=== PATIENT | female | born 2000 | race American Indian/Alaskan Native ===

== ENCOUNTER 2020-05-24 12:47 | Emergency (ER) | payer MEDICAID ==
[2020-05-24 13:00] VITALS: BP 151/70
--- NOTE | 2020-05-24 13:21 | Event Note ---
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 Further treatment and workup at subsequent clinical providers discretion. Patient/guardian urged not to elope from the ED as their condition may be serious if not clinically assessed and managed. Initial orders include: labs, ua
[2020-05-24 14:10] LABS: Bilirubin,Urine NEG (Negative); Blood,Urine NEG (Negative); Color,Urine Yellow (Yellow); Mucus,Urine FEW /HPF; Protein,Urine <15 mg/dL mg/dL (Negative); Urobilinogen,Urine < 2.0 mg/dL (<2.0); WBC,Urine < 1.0 /HPF (0.0-6.0)
[2020-05-24 14:42] LABS: Basophils # (Auto) 0.1 K/mm3 (0.0-0.1); Basophils % (Auto) 0.4 % (0.0-1.8); Eosinophils # (Auto) 0.1 K/mm3 (0.0-0.4); Eosinophils % (Auto) 0.9 % (0.0-4.3); Hematocrit 33.2 % (30.3-42.9); Hemoglobin 11.7 gm/dl (10.1-14.3); Lymphocytes # (Auto) 1.7 K/mm3 (1.2-5.4); Lymphocytes % (Auto) 14.3 % (13.4-35.0); Mean Corpuscular HGB Conc 35 % (30-34); Mean Corpuscular Volume 88 fl (79-97); Monocytes # (Auto) 0.9 K/mm3 (0.0-0.8); Monocytes % (Auto) 7.8 % (0.0-7.3); Red Blood Count 3.79 M/mm3 (3.65-5.03); Red Cell Distribution Width 13.3 % (13.2-15.2)
[2020-05-24 14:47] LABS: Platelet Count 243 K/mm3 (140-440)
[2020-05-24 15:08] LABS: Alanine Aminotransferase 13 units/L (7-56); Albumin 3.6 g/dL (3.9-5); Blood Urea Nitrogen 7 mg/dL (7-17); Calcium 9.6 mg/dL (8.4-10.2); Hemolysis Index 28
[2020-05-24 15:16] LABS: BUN/Creatinine Ratio 18
--- NOTE | 2020-05-24 23:37 | Emergency Department Report ---
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 Patient states she was in [employer] office earlier today and had mildly elevated high blood pressure and she was advised that further evaluation and treatment options were needed. States the plan is for her to return to the office tomorrow and be reevaluated in the next still so low blood pressure medication may be initiated. During office visit she states she was advised to seek evaluation at the emergency department to ensure that there were no other issues presents. She reports no fever, no chest pain, no palpitations, no headache, no blurred vision. Reports she is compliant with her vitamins and has no other known medical issues. Improves with: none Worsens with: none Associated Symptoms: malaise. denies: diaphoresis, loss of appetite, rash, seizure, syncope, weakness - Related Data Allergies Allergy/AdvReac Type Severity Reaction Status Date / Time No Known Allergies Allergy Unverified 05/24/20 12:59 ED Review of Systems Comment: All other systems reviewed and negative ED Past Medical Hx - Past Medical History Previous Medical History?: No - Surgical History Past Surgical History?: No - Social History Smoking Status: Never Smoker Substance Use Type: None ED Physical Exam - General Limitations: No Limitations General appearance: alert, in no apparent distress, other (In a good mood ambulatory no acute distress speaking in full sentences) - Head Head exam: Present: atraumatic, normocephalic - Eye Eye exam: Present: normal appearance, PERRL, EOMI - ENT ENT exam: Present: mucous membranes moist - Neck Neck exam: Present: normal inspection - Respiratory Respiratory exam: Present: normal lung sounds bilaterally. Absent: respiratory distress - Cardiovascular Cardiovascular Exam: Present: regular rate, normal rhythm. Absent: systolic murmur, diastolic murmur, rubs, gallop - GI/Abdominal GI/Abdominal exam: Present: soft, normal bowel sounds, other ( abdomen is protuberant) - Extremities Exam Extremities exam: Present: normal inspection - Back Exam Back exam: Present: normal inspection. Absent: CVA tenderness (R), CVA tenderness (L) - Neurological Exam Neurological exam: Present: alert, oriented X3, CN II-XII intact - Psychiatric Psychiatric exam: Present: normal affect, normal mood - Skin Skin exam: Present: warm, dry, intact, normal color. Absent: rash ED Medical Decision Making - Lab Data Result diagrams: 05/24/20 14:01 05/24/20 14:01 - Medical Decision Making Presents to the emergency department complaining of high blood pressure. Patient is otherwise asymptomatic without confusion, chest pain, hematuria, or SOB. BP today is in the 150s over the 70s Patient is not currently on medication Doubt CV, AMI, heart failure, renal infarction or failure or other end organ damage. Disposition:Discussed with patient their elevated blood pressure and need for close outpatient management of their hypertension. Will provide a prescription for the patients previous antihypertensive medication and arrange for the patient to follow up in a primary care clinic Disposition: Discussed with patient their elevated blood pressure and need for close outpatient management of their hypertension. Advised the patient on appropriate hydration and salt limitations to help manage his hypertension. Also advised to keep your appointment tomorrow to further evaluate the need for a prescription ED Disposition Clinical Impression: HTN (hypertension) with goal to be determined Disposition: DC-01 TO HOME OR SELFCARE Is pt being admited?: No Does the pt Need Aspirin: No Condition: Stable Instructions: Hypertension During , [id number], Hypertension (ED) Additional Instructions: Preprocedure return to your [employer] to be further evaluated for your hypertensive issues. This present timeplease refrain from salt and increase your hydration to help combat your hypertension. Referrals: PRIMARY CARE, [Primary Care Provider] - 3-5 Days <GWEN COLLINS III - Last Filed: 05/25/20 00:00> ED Review of Systems ROS: Stated complaint: SOB,HIGH BLOOD PRESSURE Other details as noted in HPI ED Course Vital Signs 05/24/20 05/24/20 05/24/20 12:58 22:37 23:40 Temperature 98.3 F Pulse Rate 107 H 88 Respiratory 22 17 Rate Blood Pressure 151/70 O2 Sat by Pulse 99 97 98 Oximetry - Reevaluation(s) Reevaluation #1: I reviewed the findings and management of this patient in real-time and I have personally seen and examined this patient and participated in the decision making for this patient with the midlevel. Patient is a 20-year-old female that is 24 weeks . Patient presents for management of her high blood pressure. Patient denies chest pain. Patient denies shortness of breath. Patient's blood pressure is elevated. I discussed low-salt diet with patient. I discussed increasing her free water intake. I examined the patient. Patient's lung sounds are clear. Patient's CV exam shows normal S1-S2. Patient has a gravid abdomen. Patient does not have any dyspnea with exertion or ambulation. Patient ambulatory in the ER without difficulty. Patient's oxygen saturation stable with ambulation. Patient's vital signs are normal except for elevated blood pressure. I discussed all results and clinical findings with patient. I discussed plan of care with patient. Patient agrees with plan of care. Patient is stable for discharge. Patient will be discharged home. Patient given discharge instructions. Patient voiced understanding of discharge instructions. 05/24/20 23:01 ED Medical Decision Making - Lab Data Result diagrams: 05/24/20 14:01 05/24/20 14:01 Critical care attestation.: If time is entered above; I have spent that time in minutes in the direct care of this critically ill patient, excluding procedure time. ED Disposition Is pt being admited?: No Does the pt Need Aspirin: No Time of Disposition: 23:59
== END 2020-05-24 23:39 | disposition home or self-care (01) ==
LOC: ED 12:47
DX: O16.2 Unspecified maternal hypertension, second trimester (principal); Z3A.24 24 weeks gestation of pregnancy
CPT/HCPCS: 36415; 80053; 81001; 85025

== ENCOUNTER 2020-06-30 12:11 | Outpatient (CLI) | payer MEDICAID ==
[2020-06-30 18:01] VITALS: BP 133/66
== END 2020-06-30 18:29 | disposition home or self-care (01) ==
LOC: LAB 12:11 → APU 17:48 → LAB 18:29
PROVIDERS: ATTEND Obstetrics & Gynecology
DX: O26.893 Other specified pregnancy related conditions, third trimester (principal); Z67.11 Type A blood, Rh negative; Z3A.29 29 weeks gestation of pregnancy
CPT/HCPCS: 59025; 86850; 86900; 86901; 96372; J2790

== ENCOUNTER 2020-07-23 23:26 | Outpatient (CLI) | payer MEDICAID ==
[2020-07-24] MEDS ORDERED: LACTATED RINGERS 1,000 ML IV ONE (00:10)
[2020-07-24 00:46] LABS: Bacteria,Urine 1+ /HPF (Negative); Bilirubin,Urine NEG (Negative); Blood,Urine NEG (Negative); Color,Urine Yellow (Yellow); Mucus,Urine FEW /HPF; Protein,Urine <15 mg/dL mg/dL (Negative); Urobilinogen,Urine < 2.0 mg/dL (<2.0)
[2020-07-24 00:58] VITALS: BP 123/77
== END 2020-07-24 01:15 | disposition home or self-care (01) ==
LOC: TRG 23:26 → APU 23:34 → TRG 07-24 01:15
PROVIDERS: ATTEND Obstetrics & Gynecology
DX: Z34.93 Encounter for supervision of normal pregnancy, unspecified, third trimester (principal); Z3A.32 32 weeks gestation of pregnancy
CPT/HCPCS: 59025; 81001

== ENCOUNTER 2020-09-06 15:08 | Inpatient (IN) | payer MEDICAID ==
--- NOTE | 2020-09-06 15:46 | History and Physical Report ---
History of Present Illness Date of examination: 09/06/20 Date of admission: 09/06/20 15:08 Chief complaint: IOL, PIH, Class III Obesity History of present illness: 20 yo G1 at 39w0d (HANNA 09/13/20) c/b Anemia (on iron), +CT (neg CLARK), Rh neg, GHTN/PIH (24H TP 508 -> 540), Class III Obesity, gained >100 lb this ), GBS neg presenting for IOL for PIH and Class III Obesity. Patient denies labor complaints or PIH symptoms. +FM. PNC reviewed. 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) Family/Genetic History: none Social history: no significant social history - Obstetrical History Expected Date of Delivery: 09/13/20 Actual Gestation: 39 Week(s) 0 Day(s) : 1 Medications and Allergies Allergies Allergy/AdvReac Type Severity Reaction Status Date / Time No Known Allergies Allergy Unverified 05/24/20 12:59 Review of Systems All systems: negative (expect HPI) - Physical Exam Abdomen: Positive: normal appearance, normal bowel sounds Uterus: Positive: enlarged - Obstetrical FHR: category 1 Uterine Contraction Monitor Mode: External Cervical Dilatation: 0 Results Result Diagrams: 09/06/20 15:45 09/06/20 15:45 All other labs normal. Assessment and Plan - Patient Problems (1) Obesity affecting Current Visit: Yes Status: Acute Plan to address problem: Proceed with IOL for Class III Obesity at term --Cerdivil for cervical ripening, ok for pit after 3+ cm --IV pain medication, epidural is available --Anticipate (2) PIH ( induced hypertension) Current Visit: Yes Status: Acute Plan to address problem: --Known atleast GHTN. Will obtain baseline PIH labs --Monitor for s/sx preeclampsia
[2020-09-06] MEDS ORDERED: MINERAL OIL 30 ML ORAL LIQD PO PRN (16:00)
[2020-09-06] MEDS ORDERED: ONDANSETRON 4 MG/2 ML INJ IV PRN (16:00)
[2020-09-06] MEDS ORDERED: OXYTOCIN DRIP 30 UNITS/500 ML BAG IV SCH ×2 (16:00)
[2020-09-06] MEDS ORDERED: TERBUTALINE 1 MG/1 ML INJ SUB-Q PRN (16:00)
[2020-09-06] MEDS ORDERED: LOPERAMIDE 2 MG CAP PO PRN (16:00)
[2020-09-06] MEDS ORDERED: METHYLERGONOVINE MALEATE 0.2 MG/ML VIAL IM PRN (16:00)
[2020-09-06] MEDS ORDERED: ePHEDrine SULFATE 50 MG/1 ML INJ IV PRN (16:00)
[2020-09-06] MEDS ORDERED: NALOXONE 0.4 MG/1 ML INJ IV PRN (16:00)
[2020-09-06] MEDS ORDERED: PROMETHAZINE 25 MG TAB PO PRN (16:00)
[2020-09-06] MEDS ORDERED: OXYTOCIN 10 UNIT/1 ML INJ IM PRN (16:00)
[2020-09-06] MEDS ORDERED: CARBOPROST TROMETHAMINE 250 MCG/1 ML INJ IM PRN (16:00)
[2020-09-06] MEDS ORDERED: BUTORPHANOL 2 MG/1 ML INJ IV PRN ×2 (16:00)
[2020-09-06] MEDS ORDERED: ACETAMINOPHEN 325 MG TAB PO PRN (16:00)
[2020-09-06] MEDS ORDERED: miSOPROStol 200 MCG TAB PR PRN (16:00)
[2020-09-06] MEDS ORDERED: LIDOCAINE (2%) 20 MG/1 ML VIAL 20 ML MDV INFILTRATI ONE (16:30)
[2020-09-06] MEDS ORDERED: DINOPROSTONE 10 MG VAG SUPP VG ONE (16:30)
[2020-09-06 18:18] LABS: Hemoglobin 11.1 gm/dl (10.1-14.3); Mean Corpuscular HGB Conc 34 % (30-34); Mean Corpuscular Volume 85 fl (79-97); Platelet Count 255 K/mm3 (140-440); Red Blood Count 3.88 M/mm3 (3.65-5.03); Red Cell Distribution Width 15.2 % (13.2-15.2)
[2020-09-06 19:16] LABS: Alanine Aminotransferase 12 units/L (7-56); Uric Acid 4.3 mg/dL (3.5-7.6)
[2020-09-07] MEDS ORDERED: DINOPROSTONE 10 MG VAG SUPP VG NR (08:51)
--- NOTE | 2020-09-07 10:01 | Progress Note ---
Assessment and Plan A: IUP@ 39.1 wks with PIH Class III obesity RH neg GBS neg P: Continuos monitoring Start Cervidil # 2 Pain med/Epidural prn Anticipate Offer Rhogam pp Subjective - Subjective Date of service: 09/07/20 Principal diagnosis: IUP@39.1wks Patient reports: movement normal Objective - Vital Signs Vital Signs: Vital Signs - 12hr 09/07/20 09/07/20 09/07/20 02:01 07:10 08:43 Pulse Rate 85 86 93 H Blood Pressure 123/67 123/69 131/65 O2 Sat by Pulse Oximetry 09/07/20 09/07/20 09/07/20 08:48 08:53 08:58 Pulse Rate 87 93 H 102 H Blood Pressure O2 Sat by Pulse 100 100 100 Oximetry 09/07/20 09/07/20 09/07/20 09:03 09:08 09:13 Pulse Rate 94 H 96 H 98 H Blood Pressure O2 Sat by Pulse 99 99 99 Oximetry 09/07/20 09/07/20 09/07/20 09:18 09:23 09:28 Pulse Rate 100 H 100 H 95 H Blood Pressure O2 Sat by Pulse 99 99 100 Oximetry 09/07/20 09/07/20 09/07/20 09:33 09:38 09:43 Pulse Rate 88 95 H 93 H Blood Pressure O2 Sat by Pulse 99 98 98 Oximetry 09/07/20 09/07/20 09/07/20 09:48 09:49 09:53 Pulse Rate 86 96 H 98 H Blood Pressure O2 Sat by Pulse 96 88 97 Oximetry 09/07/20 09:57 Pulse Rate 92 H Blood Pressure O2 Sat by Pulse 93 Oximetry - Exam Breasts: normal Abdomen: Present: normal appearance, soft, normal bowel sounds Vulva: both: normal Uterus: Present: normal FHR: category 1 Uterine Contraction Monitor Mode: External Cervical Dilatation: 1 Cervical Effacement Percentage: 40 station: -3 Uterine Contraction Pattern: Irregular Uterine Tone Measurement Phase: Resting Uterine Contraction Intensity: Mild Extremities: normal - Labs Labs: Abnormal Labs 09/06/20 15:45 Lactate Dehydrogenase 273 H Laboratory Results - last 24 hr 09/06/20 09/06/20 09/06/20 15:45 15:45 15:45 WBC 8.3 RBC 3.88 Hgb 11.1 Hct 33.0 MCV 85 MCH 29 MCHC 34 RDW 15.2 Plt Count 255 Creatinine Estimated GFR Uric Acid AST ALT Lactate Dehydrogenase Syphilis IgG Antibody Nonreactive Blood Type A NEGATIVE Antibody Screen Negative 09/06/20 15:45 WBC RBC Hgb Hct MCV MCH MCHC RDW Plt Count Creatinine 0.6 Estimated GFR > 60 Uric Acid 4.3 AST 27 ALT 12 Lactate Dehydrogenase 273 H Syphilis IgG Antibody Blood Type Antibody Screen
[2020-09-07] MEDS: LACTATED RINGERS 1,000 ML IV SCH (13:39)
[2020-09-07] MEDS ORDERED: CALCIUM CARBONATE 500 MG TAB CHEW PO PRN (19:46)
[2020-09-08] MEDS: LACTATED RINGERS 1,000 ML IV SCH ×4 (01:15→22:50)
--- NOTE | 2020-09-08 07:34 | Progress Note ---
Assessment and Plan A: IUP@ 39.2wks with class III obesity and PIH RH neg Neg GBS P: Continue monitoring with Pitocin Expect progress Subjective - Subjective Date of service: 09/08/20 Principal diagnosis: IUP@39.2wks Patient reports: movement normal Objective - Vital Signs Vital Signs: Vital Signs - 12hr 09/07/20 09/07/20 09/07/20 19:34 19:40 19:48 Temperature Pulse Rate Blood Pressure O2 Sat by Pulse 6 L 93 92 Oximetry 09/07/20 09/08/20 09/08/20 23:40 03:55 03:56 Temperature 98.3 F 98.3 F Pulse Rate 93 H 98 H Blood Pressure 127/59 107/60 O2 Sat by Pulse Oximetry - Exam Breasts: deferred Abdomen: Present: normal appearance, soft, normal bowel sounds Vulva: both: normal Uterus: Present: normal FHR: category 1 Uterine Contraction Monitor Mode: External Cervical Dilatation: 1.5 Cervical Effacement Percentage: 50 station: -3 Uterine Contraction Pattern: Irregular Uterine Tone Measurement Phase: Resting Uterine Contraction Intensity: Mild Extremities: normal - Labs Labs: Abnormal Labs 09/06/20 15:45 Lactate Dehydrogenase 273 H
--- NOTE | 2020-09-08 12:09 | Progress Note ---
Subjective - Subjective Date of service: 09/08/20 Principal diagnosis: IUP@39.2wks Interval history: cervix 2cm/80%/-3 AROM clear IUPC placed(FSE unable to be placed) continue oxytocin per protocol Brooke Rodríguez MD Patient reports: movement normal Objective - Vital Signs Vital Signs: Vital Signs - 12hr 09/08/20 09/08/20 09/08/20 03:55 03:56 08:22 Temperature 98.3 F Pulse Rate 98 H 85 Respiratory Rate Blood Pressure 107/60 118/70 O2 Sat by Pulse Oximetry O2 Sat by Pulse Oximetry [ Anterior Bilateral Throughout] 09/08/20 09/08/20 09/08/20 08:30 08:46 08:51 Temperature 98.0 F Pulse Rate 81 Respiratory 16 Rate Blood Pressure O2 Sat by Pulse 98 99 99 Oximetry O2 Sat by Pulse 99 Oximetry [ Anterior Bilateral Throughout] 09/08/20 09/08/20 09/08/20 08:56 09:01 09:06 Temperature Pulse Rate 84 90 81 Respiratory Rate Blood Pressure O2 Sat by Pulse 99 98 98 Oximetry O2 Sat by Pulse Oximetry [ Anterior Bilateral Throughout] 09/08/20 09/08/20 09/08/20 09:11 09:16 09:21 Temperature Pulse Rate 88 83 94 H Respiratory Rate Blood Pressure O2 Sat by Pulse 98 97 99 Oximetry O2 Sat by Pulse Oximetry [ Anterior Bilateral Throughout] 09/08/20 09/08/20 09/08/20 09:24 09:26 09:31 Temperature Pulse Rate 82 84 89 Respiratory Rate Blood Pressure 111/59 O2 Sat by Pulse 98 98 Oximetry O2 Sat by Pulse Oximetry [ Anterior Bilateral Throughout] 09/08/20 09/08/20 09/08/20 09:36 09:41 09:46 Temperature Pulse Rate 89 90 86 Respiratory Rate Blood Pressure O2 Sat by Pulse 98 98 99 Oximetry O2 Sat by Pulse Oximetry [ Anterior Bilateral Throughout] 09/08/20 09/08/20 09/08/20 09:54 09:55 09:59 Temperature Pulse Rate 82 89 92 H Respiratory Rate Blood Pressure 112/56 O2 Sat by Pulse 98 99 Oximetry O2 Sat by Pulse Oximetry [ Anterior Bilateral Throughout] 09/08/20 09/08/20 09/08/20 10:04 10:09 10:14 Temperature Pulse Rate 98 H 82 80 Respiratory Rate Blood Pressure O2 Sat by Pulse 99 100 98 Oximetry O2 Sat by Pulse Oximetry [ Anterior Bilateral Throughout] 09/08/20 09/08/20 09/08/20 10:19 10:22 10:24 Temperature Pulse Rate 77 82 84 Respiratory Rate Blood Pressure 138/80 O2 Sat by Pulse 99 98 Oximetry O2 Sat by Pulse Oximetry [ Anterior Bilateral Throughout] 09/08/20 09/08/20 09/08/20 10:29 10:45 10:50 Temperature Pulse Rate 79 79 92 H Respiratory Rate Blood Pressure O2 Sat by Pulse 99 100 100 Oximetry O2 Sat by Pulse Oximetry [ Anterior Bilateral Throughout] 09/08/20 09/08/20 09/08/20 10:55 11:00 11:05 Temperature Pulse Rate 81 83 84 Respiratory Rate Blood Pressure O2 Sat by Pulse 98 99 97 Oximetry O2 Sat by Pulse Oximetry [ Anterior Bilateral Throughout] 09/08/20 09/08/20 09/08/20 11:10 11:15 11:20 Temperature Pulse Rate 85 84 90 Respiratory Rate Blood Pressure O2 Sat by Pulse 99 99 100 Oximetry O2 Sat by Pulse Oximetry [ Anterior Bilateral Throughout] 09/08/20 09/08/20 09/08/20 11:24 11:25 11:30 Temperature Pulse Rate 78 77 85 Respiratory Rate Blood Pressure 99/55 O2 Sat by Pulse 97 98 Oximetry O2 Sat by Pulse Oximetry [ Anterior Bilateral Throughout] 09/08/20 09/08/20 09/08/20 11:36 11:41 11:46 Temperature Pulse Rate 114 H 86 94 H Respiratory Rate Blood Pressure O2 Sat by Pulse 100 98 99 Oximetry O2 Sat by Pulse Oximetry [ Anterior Bilateral Throughout] 09/08/20 09/08/20 09/08/20 11:51 11:56 12:01 Temperature Pulse Rate 87 91 H 81 Respiratory Rate Blood Pressure O2 Sat by Pulse 79 L 99 99 Oximetry O2 Sat by Pulse Oximetry [ Anterior Bilateral Throughout] 09/08/20 12:06 Temperature Pulse Rate 86 Respiratory Rate Blood Pressure O2 Sat by Pulse 99 Oximetry O2 Sat by Pulse Oximetry [ Anterior Bilateral Throughout] - Labs Labs: Abnormal Labs 09/06/20 15:45 Lactate Dehydrogenase 273 H Laboratory Results - last 24 hr 09/07/20 09:24 Coronavirus (PCR) Negative
[2020-09-08 19:06] LABS: Hepatitis C Virus Antibody Non-Reactive (NonReactive)
[2020-09-08] MEDS ORDERED: NALOXONE 2 MG/2 ML INJ IV PRN (20:14)
[2020-09-08] MEDS ORDERED: ePHEDrine SULFATE 50 MG/1 ML INJ IV PRN (20:14)
[2020-09-08] MEDS: fentaNYL-BUPIV 2 MCG/ML-0.125% 200 MCG/100 ML BAG EPIDURAL SCH (20:22)
--- NOTE | 2020-09-08 20:23 | Anesthesia Consultation ---
Anesthesia Consult and Med Hx Date of service: 09/08/20 - Airway Anesthetic Teeth Evaluation: Poor ROM Head & Neck: Adequate Mental/Hyoid Distance: Adequate Mallampati Class: Class III Intubation Access Assessment: Possibly Difficult - Pulmonary Exam CTA: Yes - Cardiac Exam Cardiac Exam: RRR - Pre-Operative Health Status ASA Pre-Surgery Classification: ASA3 Proposed Anesthetic Plan: Epidural - Pulmonary Hx Smoking: No Hx Asthma: No Hx Respiratory Symptoms: No SOB: No COPD: No Home Oxygen Therapy: No Hx Pneumonia: No Hx Sleep Apnea: No - Cardiovascular System Hx Hypertension: Yes (GHTN/PIH) Hx Coronary Artery Disease: No Hx Heart Attack/AMI: No Hx Angina: No Hx Percutaneous Transluminal Coronary Angioplasty (PTCA): No Hx Cardia Arrhythmia: No Hx Pacemaker: No Hx Internal Defibrillator: No Hx Valvular Heart Disease: No Hx Heart Murmur: No Hx Peripheral Vascular Disease: No - Central Nervous System Hx Neuromuscular Disorder: No Hx Seizures: No CVA: No Hx Back Pain: Yes Hx Psychiatric Problems: No - Gastrointestinal Hx Ulcer: No Hx Gastroesophageal Reflux Disease: Yes - Endocrine Hx Renal Disease: No Hx End Stage Renal Disease: No Hx Cirrhosis: No Hx Liver Disease: No Hx Insulin Dependent Diabetes: No Hx Non-Insulin Dependent Diabetes: No Hx Thyroid Disease: No Hx Hypothyroidism: No Hx Hyperthyroidism: No - Hematic Hx Anemia: No Hx Sickle Cell Disease: No - Other Systems Hx Alcohol Use: No Hx Substance Use: No Hx Cancer: No Hx Obesity: Yes (BMI 52)
--- NOTE | 2020-09-08 20:25 | Progress Note ---
Labor Epidural - Labor Epidural Start Time: 19:43 Stop Time: 19:51 Performed by:: 2002 Procedure: Patient is requesting a laboring epidural for laboring pain. Patient IDed, H&P reviewed, all questions and concerns were answered, and consent was signed. Timeout was performed at bedside. Patient in sitting position. Sterile prep and drape was performed. [3] ml of 1% lidocaine skin wheal at L[3]- L [4]. 18- gauge Saleem epidural needle was advanced to loss of resistance with saline technique at 9cm. Negative CSF negative blood. Epidural catheter advanced to [14] centimeters. [NEGATIVE] Aspiration [NEGATIVE] test dose. Sterile dressing applied. Patient tolerated procedure.
[2020-09-08] MEDS ORDERED: CALCIUM CARBONATE 500 MG TAB CHEW PO ONE (22:45)
--- NOTE | 2020-09-08 23:51 | Progress Note ---
Subjective - Subjective Date of service: 09/08/20 Principal diagnosis: IUP@39.2wks Interval history: FHT Category 2 Robinson: irregular plan for oxytocin rest ~2 hours then restart per protocol pt comfortable with epidural Brooke Rodríguez MD Patient reports: movement normal Objective - Vital Signs Vital Signs: Vital Signs - 12hr 09/08/20 09/08/20 09/08/20 11:51 11:56 12:01 Temperature Pulse Rate 87 91 H 81 Respiratory Rate Blood Pressure O2 Sat by Pulse 79 L 99 99 Oximetry O2 Sat by Pulse Oximetry [ Anterior Bilateral Throughout] 09/08/20 09/08/20 09/08/20 12:06 12:11 12:16 Temperature Pulse Rate 86 90 75 Respiratory Rate Blood Pressure O2 Sat by Pulse 99 99 99 Oximetry O2 Sat by Pulse Oximetry [ Anterior Bilateral Throughout] 09/08/20 09/08/20 09/08/20 12:21 12:23 12:26 Temperature Pulse Rate 78 81 84 Respiratory Rate Blood Pressure 114/55 O2 Sat by Pulse 98 97 Oximetry O2 Sat by Pulse Oximetry [ Anterior Bilateral Throughout] 09/08/20 09/08/20 09/08/20 12:31 12:36 12:41 Temperature Pulse Rate 85 85 81 Respiratory Rate Blood Pressure O2 Sat by Pulse 97 97 96 Oximetry O2 Sat by Pulse Oximetry [ Anterior Bilateral Throughout] 09/08/20 09/08/20 09/08/20 12:46 12:51 12:56 Temperature Pulse Rate 78 85 88 Respiratory Rate Blood Pressure O2 Sat by Pulse 97 96 95 Oximetry O2 Sat by Pulse Oximetry [ Anterior Bilateral Throughout] 09/08/20 09/08/20 09/08/20 13:01 13:06 13:11 Temperature Pulse Rate 85 95 H 81 Respiratory Rate Blood Pressure O2 Sat by Pulse 96 98 96 Oximetry O2 Sat by Pulse Oximetry [ Anterior Bilateral Throughout] 09/08/20 09/08/20 09/08/20 13:13 13:16 13:21 Temperature 97.8 F Pulse Rate 93 H 92 H Respiratory Rate Blood Pressure O2 Sat by Pulse 97 96 Oximetry O2 Sat by Pulse Oximetry [ Anterior Bilateral Throughout] 09/08/20 09/08/20 09/08/20 13:24 13:26 13:31 Temperature Pulse Rate 85 82 85 Respiratory Rate Blood Pressure 110/65 O2 Sat by Pulse 96 98 Oximetry O2 Sat by Pulse Oximetry [ Anterior Bilateral Throughout] 09/08/20 09/08/20 09/08/20 13:36 13:41 13:46 Temperature Pulse Rate 95 H 83 85 Respiratory Rate Blood Pressure O2 Sat by Pulse 98 96 98 Oximetry O2 Sat by Pulse Oximetry [ Anterior Bilateral Throughout] 09/08/20 09/08/20 09/08/20 13:51 13:56 14:01 Temperature Pulse Rate 93 H 93 H 84 Respiratory Rate Blood Pressure O2 Sat by Pulse 98 96 100 Oximetry O2 Sat by Pulse Oximetry [ Anterior Bilateral Throughout] 09/08/20 09/08/20 09/08/20 14:06 14:11 14:16 Temperature Pulse Rate 82 86 90 Respiratory Rate Blood Pressure O2 Sat by Pulse 98 99 99 Oximetry O2 Sat by Pulse Oximetry [ Anterior Bilateral Throughout] 09/08/20 09/08/20 09/08/20 14:21 14:23 14:26 Temperature Pulse Rate 105 H 111 H 98 H Respiratory Rate Blood Pressure 187/99 O2 Sat by Pulse 100 99 Oximetry O2 Sat by Pulse Oximetry [ Anterior Bilateral Throughout] 09/08/20 09/08/20 09/08/20 14:31 14:36 14:41 Temperature Pulse Rate 87 87 93 H Respiratory Rate Blood Pressure O2 Sat by Pulse 99 98 98 Oximetry O2 Sat by Pulse Oximetry [ Anterior Bilateral Throughout] 09/08/20 09/08/20 09/08/20 14:45 14:46 14:51 Temperature Pulse Rate 83 100 H 87 Respiratory Rate Blood Pressure O2 Sat by Pulse 93 100 99 Oximetry O2 Sat by Pulse Oximetry [ Anterior Bilateral Throughout] 09/08/20 09/08/20 09/08/20 14:56 14:58 15:00 Temperature 97.9 F Pulse Rate 105 H 90 Respiratory Rate Blood Pressure 128/72 O2 Sat by Pulse 100 Oximetry O2 Sat by Pulse Oximetry [ Anterior Bilateral Throughout] 09/08/20 09/08/20 09/08/20 15:01 15:06 15:11 Temperature Pulse Rate 91 H 95 H 95 H Respiratory Rate Blood Pressure O2 Sat by Pulse 100 99 99 Oximetry O2 Sat by Pulse Oximetry [ Anterior Bilateral Throughout] 09/08/20 09/08/20 09/08/20 15:16 15:21 15:23 Temperature Pulse Rate 89 96 H 91 H Respiratory Rate Blood Pressure 133/82 O2 Sat by Pulse 98 99 Oximetry O2 Sat by Pulse Oximetry [ Anterior Bilateral Throughout] 09/08/20 09/08/20 09/08/20 15:26 15:31 15:36 Temperature Pulse Rate 93 H 89 97 H Respiratory Rate Blood Pressure O2 Sat by Pulse 98 100 99 Oximetry O2 Sat by Pulse Oximetry [ Anterior Bilateral Throughout] 09/08/20 09/08/20 09/08/20 15:41 15:46 15:51 Temperature Pulse Rate 98 H 97 H 96 H Respiratory Rate Blood Pressure O2 Sat by Pulse 99 96 99 Oximetry O2 Sat by Pulse Oximetry [ Anterior Bilateral Throughout] 09/08/20 09/08/20 09/08/20 15:56 16:01 16:06 Temperature Pulse Rate 98 H 93 H 98 H Respiratory Rate Blood Pressure O2 Sat by Pulse 98 98 98 Oximetry O2 Sat by Pulse Oximetry [ Anterior Bilateral Throughout] 09/08/20 09/08/20 09/08/20 16:11 16:16 16:21 Temperature Pulse Rate 97 H 93 H 92 H Respiratory Rate Blood Pressure O2 Sat by Pulse 99 98 97 Oximetry O2 Sat by Pulse Oximetry [ Anterior Bilateral Throughout] 09/08/20 09/08/20 09/08/20 16:23 16:26 16:31 Temperature Pulse Rate 93 H 102 H 113 H Respiratory Rate Blood Pressure 125/61 O2 Sat by Pulse 98 99 Oximetry O2 Sat by Pulse Oximetry [ Anterior Bilateral Throughout] 09/08/20 09/08/20 09/08/20 16:36 16:41 16:46 Temperature Pulse Rate 95 H 98 H 101 H Respiratory Rate Blood Pressure O2 Sat by Pulse 99 99 98 Oximetry O2 Sat by Pulse Oximetry [ Anterior Bilateral Throughout] 09/08/20 09/08/20 09/08/20 16:51 16:55 16:56 Temperature Pulse Rate 96 H 95 H 181 H Respiratory Rate Blood Pressure O2 Sat by Pulse 98 94 98 Oximetry O2 Sat by Pulse Oximetry [ Anterior Bilateral Throughout] 09/08/20 09/08/20 09/08/20 17:01 17:06 17:11 Temperature Pulse Rate 98 H 108 H 111 H Respiratory Rate Blood Pressure O2 Sat by Pulse 97 99 98 Oximetry O2 Sat by Pulse Oximetry [ Anterior Bilateral Throughout] 09/08/20 09/08/20 09/08/20 17:16 17:21 17:26 Temperature Pulse Rate 91 H 85 90 Respiratory Rate Blood Pressure O2 Sat by Pulse 98 99 100 Oximetry O2 Sat by Pulse Oximetry [ Anterior Bilateral Throughout] 09/08/20 09/08/20 09/08/20 17:31 17:36 17:37 Temperature Pulse Rate 99 H 92 H 96 H Respiratory Rate Blood Pressure 119/82 O2 Sat by Pulse 100 99 Oximetry O2 Sat by Pulse Oximetry [ Anterior Bilateral Throughout] 09/08/20 09/08/20 09/08/20 17:41 17:46 17:51 Temperature Pulse Rate 97 H 93 H 102 H Respiratory Rate Blood Pressure O2 Sat by Pulse 100 100 98 Oximetry O2 Sat by Pulse Oximetry [ Anterior Bilateral Throughout] 09/08/20 09/08/20 09/08/20 17:56 18:01 18:06 Temperature Pulse Rate 96 H 85 90 Respiratory Rate Blood Pressure O2 Sat by Pulse 99 100 100 Oximetry O2 Sat by Pulse Oximetry [ Anterior Bilateral Throughout] 09/08/20 09/08/20 09/08/20 18:11 18:16 18:21 Temperature Pulse Rate 87 87 85 Respiratory Rate Blood Pressure O2 Sat by Pulse 99 100 98 Oximetry O2 Sat by Pulse Oximetry [ Anterior Bilateral Throughout] 09/08/20 09/08/20 09/08/20 18:26 18:31 18:36 Temperature Pulse Rate 90 90 87 Respiratory Rate Blood Pressure O2 Sat by Pulse 100 99 97 Oximetry O2 Sat by Pulse Oximetry [ Anterior Bilateral Throughout] 09/08/20 09/08/20 09/08/20 18:41 18:46 18:51 Temperature Pulse Rate 102 H 97 H 87 Respiratory Rate Blood Pressure O2 Sat by Pulse 98 99 98 Oximetry O2 Sat by Pulse Oximetry [ Anterior Bilateral Throughout] 09/08/20 09/08/20 09/08/20 18:56 19:01 19:06 Temperature Pulse Rate 87 101 H 91 H Respiratory Rate Blood Pressure O2 Sat by Pulse 99 100 100 Oximetry O2 Sat by Pulse Oximetry [ Anterior Bilateral Throughout] 09/08/20 09/08/20 09/08/20 19:11 19:13 19:14 Temperature 98.0 F Pulse Rate 99 H 97 H Respiratory 18 Rate Blood Pressure O2 Sat by Pulse 100 93 98 Oximetry O2 Sat by Pulse Oximetry [ Anterior Bilateral Throughout] 09/08/20 09/08/20 09/08/20 19:16 19:21 19:25 Temperature Pulse Rate 100 H 109 H Respiratory Rate Blood Pressure 151/85 O2 Sat by Pulse 98 99 Oximetry O2 Sat by Pulse 99 Oximetry [ Anterior Bilateral Throughout] 09/08/20 09/08/20 09/08/20 19:42 19:44 19:47 Temperature Pulse Rate 98 H 95 H 103 H Respiratory Rate Blood Pressure 120/63 O2 Sat by Pulse 98 99 Oximetry O2 Sat by Pulse Oximetry [ Anterior Bilateral Throughout] 09/08/20 09/08/20 09/08/20 19:49 19:51 19:52 Temperature Pulse Rate 96 H 97 H 90 Respiratory Rate Blood Pressure 133/70 136/74 O2 Sat by Pulse 99 Oximetry O2 Sat by Pulse Oximetry [ Anterior Bilateral Throughout] 09/08/20 09/08/20 09/08/20 19:53 19:55 19:57 Temperature Pulse Rate 91 H 96 H 96 H Respiratory Rate Blood Pressure 137/77 136/67 141/65 O2 Sat by Pulse 99 Oximetry O2 Sat by Pulse Oximetry [ Anterior Bilateral Throughout] 09/08/20 09/08/20 09/08/20 19:59 20:01 20:02 Temperature Pulse Rate 100 H 95 H 94 H Respiratory Rate Blood Pressure 134/59 130/61 O2 Sat by Pulse 100 Oximetry O2 Sat by Pulse Oximetry [ Anterior Bilateral Throughout] 09/08/20 09/08/20 09/08/20 20:03 20:05 20:07 Temperature Pulse Rate 93 H 90 94 H Respiratory Rate Blood Pressure 135/64 133/64 136/67 O2 Sat by Pulse 98 Oximetry O2 Sat by Pulse Oximetry [ Anterior Bilateral Throughout] 09/08/20 09/08/20 09/08/20 20:14 20:19 20:24 Temperature Pulse Rate 92 H 88 90 Respiratory Rate Blood Pressure 127/68 O2 Sat by Pulse 97 99 98 Oximetry O2 Sat by Pulse Oximetry [ Anterior Bilateral Throughout] 09/08/20 09/08/20 09/08/20 20:26 20:29 20:34 Temperature Pulse Rate 83 85 89 Respiratory Rate Blood Pressure 117/56 O2 Sat by Pulse 100 98 Oximetry O2 Sat by Pulse Oximetry [ Anterior Bilateral Throughout] 09/08/20 09/08/20 09/08/20 20:39 20:41 20:44 Temperature Pulse Rate 79 84 78 Respiratory Rate Blood Pressure 115/56 O2 Sat by Pulse 99 99 Oximetry O2 Sat by Pulse Oximetry [ Anterior Bilateral Throughout] 09/08/20 09/08/20 09/08/20 20:49 20:54 20:57 Temperature Pulse Rate 82 83 82 Respiratory Rate Blood Pressure 100/54 O2 Sat by Pulse 99 98 Oximetry O2 Sat by Pulse Oximetry [ Anterior Bilateral Throughout] 09/08/20 09/08/20 09/08/20 20:59 21:04 21:09 Temperature Pulse Rate 86 81 82 Respiratory Rate Blood Pressure O2 Sat by Pulse 99 99 98 Oximetry O2 Sat by Pulse Oximetry [ Anterior Bilateral Throughout] 09/08/20 09/08/20 09/08/20 21:11 21:14 21:19 Temperature Pulse Rate 88 83 82 Respiratory Rate Blood Pressure 97/55 O2 Sat by Pulse 99 99 Oximetry O2 Sat by Pulse Oximetry [ Anterior Bilateral Throughout] 09/08/20 09/08/20 09/08/20 21:24 21:28 21:29 Temperature Pulse Rate 81 71 74 Respiratory Rate Blood Pressure 142/78 O2 Sat by Pulse 96 100 Oximetry O2 Sat by Pulse Oximetry [ Anterior Bilateral Throughout] 09/08/20 09/08/20 09/08/20 21:34 21:39 21:40 Temperature Pulse Rate 76 75 79 Respiratory Rate Blood Pressure O2 Sat by Pulse 96 95 94 Oximetry O2 Sat by Pulse Oximetry [ Anterior Bilateral Throughout] 09/08/20 09/08/20 09/08/20 21:44 21:49 21:54 Temperature Pulse Rate 75 76 81 Respiratory Rate Blood Pressure O2 Sat by Pulse 100 98 98 Oximetry O2 Sat by Pulse Oximetry [ Anterior Bilateral Throughout] 09/08/20 09/08/20 09/08/20 21:57 21:59 22:04 Temperature Pulse Rate 80 81 82 Respiratory Rate Blood Pressure 123/56 O2 Sat by Pulse 98 98 Oximetry O2 Sat by Pulse Oximetry [ Anterior Bilateral Throughout] 09/08/20 09/08/20 09/08/20 22:09 22:14 22:19 Temperature Pulse Rate 82 87 80 Respiratory Rate Blood Pressure O2 Sat by Pulse 98 99 99 Oximetry O2 Sat by Pulse Oximetry [ Anterior Bilateral Throughout] 09/08/20 09/08/20 09/08/20 22:24 22:29 22:34 Temperature Pulse Rate 80 85 83 Respiratory Rate Blood Pressure O2 Sat by Pulse 98 98 97 Oximetry O2 Sat by Pulse Oximetry [ Anterior Bilateral Throughout] 09/08/20 09/08/20 09/08/20 22:39 22:45 22:49 Temperature Pulse Rate 85 84 99 H Respiratory Rate Blood Pressure O2 Sat by Pulse 97 97 93 Oximetry O2 Sat by Pulse Oximetry [ Anterior Bilateral Throughout] 09/08/20 09/08/20 09/08/20 22:51 22:55 22:56 Temperature Pulse Rate 106 H 105 H 54 L Respiratory Rate Blood Pressure O2 Sat by Pulse 94 88 66 L Oximetry O2 Sat by Pulse Oximetry [ Anterior Bilateral Throughout] 09/08/20 09/08/20 09/08/20 22:59 23:04 23:09 Temperature Pulse Rate 83 87 85 Respiratory Rate Blood Pressure O2 Sat by Pulse 100 100 100 Oximetry O2 Sat by Pulse Oximetry [ Anterior Bilateral Throughout] 09/08/20 09/08/20 09/08/20 23:15 23:19 23:25 Temperature Pulse Rate 98 H 86 96 H Respiratory Rate Blood Pressure O2 Sat by Pulse 80 L 100 100 Oximetry O2 Sat by Pulse Oximetry [ Anterior Bilateral Throughout] 09/08/20 09/08/20 09/08/20 23:29 23:34 23:40 Temperature Pulse Rate 78 83 92 H Respiratory Rate Blood Pressure O2 Sat by Pulse 100 100 100 Oximetry O2 Sat by Pulse Oximetry [ Anterior Bilateral Throughout] 09/08/20 23:44 Temperature Pulse Rate 86 Respiratory Rate Blood Pressure O2 Sat by Pulse 100 Oximetry O2 Sat by Pulse Oximetry [ Anterior Bilateral Throughout] - Labs Labs: Abnormal Labs 09/06/20 15:45 Lactate Dehydrogenase 273 H Laboratory Results - last 24 hr 09/07/20 09/08/20 09/08/20 09:24 18:14 18:14 Syphilis IgG Antibody Coronavirus (PCR) Negative Hep Bs Antigen Non-reactive Hepatitis C Antibody Non-reactive HIV 1&2 Antibody Rapid HIV P24 Antigen Rubella IgG Antibody Immune 09/08/20 09/08/20 18:14 18:14 Syphilis IgG Antibody Nonreactive Coronavirus (PCR) Hep Bs Antigen Hepatitis C Antibody HIV 1&2 Antibody Rapid Non react HIV P24 Antigen Non react Rubella IgG Antibody
[2020-09-09] MEDS: fentaNYL-BUPIV 2 MCG/ML-0.125% 200 MCG/100 ML BAG EPIDURAL SCH (04:10)
[2020-09-09] MEDS: LACTATED RINGERS 1,000 ML IV SCH ×2 (07:11→20:12)
[2020-09-09] MEDS ORDERED: METOCLOPRAMIDE 10 MG/2 ML INJ IV ONE (09:18)
[2020-09-09] MEDS ORDERED: FAMOTIDINE 20 MG/2 ML INJ IV ONE (09:18)
[2020-09-09] MEDS ORDERED: BICITRA ORAL LIQD 30ML PO ONE (09:18)
--- NOTE | 2020-09-09 09:22 | Event Note ---
Date: 09/09/20 minimal cervical change despite AROM and oxtocin for over 24 hours. Plan for operative delivery. Informed consent obtained. Brooke Rodríguez MD
--- NOTE | 2020-09-09 09:27 | Anesthesia Day of Surgery ---
Anesthesia Day of Surgery - Day of Surgery Patient Examined: Yes Patient H&P Reviewed: Yes Patient is NPO: Yes Beta Blockers: No Cardiac Clearance: No Pulmonary Clearance: No Gautam's Test: Negative
[2020-09-09] MEDS ORDERED: LACTATED RINGERS 1,000 ML IV SCH (09:30)
[2020-09-09] MEDS ORDERED: ONDANSETRON 4 MG/2 ML INJ IV PRN (10:00)
[2020-09-09] MEDS ORDERED: HYDROmorphone 1 MG/1 ML INJ IV PRN (10:00)
[2020-09-09] MEDS ORDERED: NALOXONE 0.4 MG/1 ML INJ IV PRN ×2 (10:00→22:41)
--- NOTE | 2020-09-09 11:26 | Procedure Note ---
OB Delivery Note - Delivery Date of Delivery: 09/09/20 Surgeon: CHARISMA PORTER - Section Preop diagnosis: arrest of dilation Postop diagnosis: same section procedure: primary low transverse Disposition: PACU Narrative: Preop diagnosis: IUP at 39.3 weeks,morbid obesity,arrest of dilation Postop diagnosis: Same,delivery Procedure: Primary low transverse section via Pfannenstiel incision Surgeon: Dr. Charisma Porter Anesthesia spinal Complications none EBL ml IV fluids mL Urine output mL, clear Drains Greer to gravity Findings: Viable male with weight 3820gms and 8/9, normal uterus tubes and ovaries bilaterally Procedure: Patient was consented in room 2006 then taken to the operating room where excellent spinal/epidural anesthesia was verified. She was then placed in the dorsal supine position with a leftward tilt. The abdomen was prepped and draped in a sterile fashion, and a timeout was verified. Adequate analgesia was confirmed prior to the skin incision. A Pfannenstiel skin incision was made with a scalpel taken down to the underlying structures and the fascia was incised in the midline. The incision was extended laterally with curved Livingston scissors, the superior and inferior aspects of the fascial incisions were grasped with Radha clamps and the rectus muscles dissected sharply. The abdomen was entered bluntly in the midline carried down inferiorly with good visualization of the bladder. The vesicouterine peritoneum was tented with Malagasy forceps and incised in the midline with Metzenbaum scissors and the vesicouterine peritoneum taken down sharply. Bladder blade was inserted, the uterine incision was made sharply with a scalpel. The inferior and superior aspect of the uterine incisions were extended bluntly, the baby's head was delivered atraumatically. The remainder of the delivery was atraumatic, a loose nuchal cord was reduced after delivery. The cord was clamped and cut and baby handed to waiting NICU team. An intact placenta with three-vessel cord delivered manually. The uterus was then cleared of all clots and debris and the uterus exteriorized. The uterine incision was closed with 2 layers of 0 chromic with excellent hemostasis. The abdomen was then irrigated with warm normal saline and the uterus placed back into the abdomen atraumatically. A second look at the uterine incision assured hemostasis. The peritoneum was closed with 3-0 Vicryl, the rectus muscles approximated with 3-0 Vicryl, and the fascia closed with 0 Vicryl in the usual fashion. The subcuticular structures were closed with interrupted sutures of 3-0 Vicryl and the skin closed with 4-0 Monocryl. A pressure dressing was applied. All sponge needle and instrument counts were correct x2. There were no complications. Mom and baby stable to PACU. ABHISHEK Porter MD
[2020-09-09] MEDS ORDERED: LIDOCAINE MPF (2%) 20 MG/1 ML VIAL 5 ML ONE ×2 (13:08→13:52)
[2020-09-09] MEDS ORDERED: ONDANSETRON 4 MG/2 ML INJ ONE (13:30)
[2020-09-09] MEDS ORDERED: LIDOCAINE 2%/EPINEPHRINE 1:200,000 VIAL (20 ML) INFILTRATI ONE (13:36)
[2020-09-09] MEDS ORDERED: SODIUM BICARB 8.4% 50 MEQ/50 ML VIAL IV ONE (13:51)
[2020-09-09] MEDS ORDERED: OXYTOCIN 10 UNIT/1 ML INJ ONE (14:03)
[2020-09-09] MEDS ORDERED: BUPIVACAINE/PF (0.25%) 2.5 MG/ML 30 ML VIAL INFILTRATI ONE ×2 (14:25)
[2020-09-09] MEDS ORDERED: CLINDAMYCIN 600 MG/50 mL 600 MG/50 ML BAG IV ONE (16:00)
[2020-09-09] MEDS: HYDROmorphone 1 MG/1 ML INJ IV PRN (19:46)
--- NOTE | 2020-09-09 21:20 | Post Anesthesia Evaluation ---
- Post Anesthesia Evaluation Patient Participated: Yes Airway Patent: Yes Stable Respiratory Function: Yes Nausea/Vomiting: No Temp > 96.8F: Yes Pain Manageable: Yes Adequeate Hydration: Yes Anesthesia Complications: No Block Receding Appropriately: Yes Patient on Ventilator: No
[2020-09-09] MEDS ORDERED: KETOROLAC 30 MG/1 ML INJ IV PRN (22:41)
[2020-09-09] MEDS ORDERED: LANOLIN/ZINC/DIMETHICONE (LANSINOH) 7 GM TP PRN (22:41)
[2020-09-09] MEDS ORDERED: IBUPROFEN 600 MG TAB PO PRN (22:41)
[2020-09-09] MEDS ORDERED: MORPHINE 4 MG/1 ML INJ IV PRN (22:41)
[2020-09-09] MEDS ORDERED: IBUPROFEN 800 MG TAB PO PRN (22:41)
[2020-09-09] MEDS ORDERED: WITCH HAZEL/ GLYCERIN PAD TP PRN (22:41)
[2020-09-09] MEDS ORDERED: MORPHINE 2 MG/1 ML INJ IV PRN (22:41)
[2020-09-10] MEDS: HYDROmorphone 1 MG/1 ML INJ IV PRN (00:29)
[2020-09-10 03:46] LABS: Hematocrit 30.8 % (30.3-42.9); Hemoglobin 10.4 gm/dl (10.1-14.3)
[2020-09-10] MEDS: HYDROcodone/ACETAMINOPHEN 5-325 MG TAB PO PRN ×3 (05:32→17:54)
--- NOTE | 2020-09-10 10:57 | Progress Note ---
Assessment and Plan A: /postop day 1 S/P primary LTCS. Class 3 obesity. Anemia. History of PIH. P: Encouraged patient to ambulate. Patient to drink warm liquids. Simethicone ordered. Supplement with iron when patient is eating regular diet. Subjective - Subjective Date of service: 09/10/20 Principal diagnosis: /postop day 1 S/P primary LTCS Patient reports: appetite normal, voiding normally, pain well controlled, am bulating normally, no dizzy ambulation, no flatus, no bowel movement, no nauseated : doing well Objective - Vital Signs Latest vital signs: Vital Signs Temp Pulse Resp BP BP Pulse Ox Pulse Ox 09/10/20 08:35 99 09/10/20 08:19 98.0 F 92 H 18 107/60 96 09/10/20 06:29 88 112/56 09/10/20 05:32 18 09/10/20 04:38 98.0 F 96 H 20 93/49 94 09/10/20 01:56 20 09/10/20 01:08 97.9 F 99 H 20 134/66 97 09/10/20 00:29 20 09/09/20 19:56 98.2 F 103 H 20 125/77 96 09/09/20 19:54 99 09/09/20 19:46 20 09/09/20 16:53 97.9 F 101 H 18 123/75 100 09/09/20 16:40 98 09/09/20 16:12 100.2 F H 99 H 20 114/63 99 09/09/20 16:05 100.2 F H 100 H 20 180/88 99 09/09/20 15:55 100.2 F H 99 H 20 180/88 99 09/09/20 15:50 100.2 F H 99 H 20 170/81 99 09/09/20 15:43 100.2 F H 99 H 20 167/83 99 09/09/20 15:40 100.2 F H 99 H 20 167/83 97 09/09/20 15:35 100.2 F H 100 H 20 170/81 97 09/09/20 15:30 100.2 F H 98 H 20 156/80 97 09/09/20 15:25 100.2 F H 98 H 20 156/79 99 09/09/20 15:20 100.9 F H 96 H 20 158/77 95 09/09/20 15:15 100.9 F H 95 H 20 148/78 95 09/09/20 13:19 123 H 99 09/09/20 13:14 126 H 98 09/09/20 13:09 136 H 99 09/09/20 13:04 125 H 100 09/09/20 13:00 125 H 20 135/70 100 09/09/20 12:59 134 H 99 09/09/20 12:54 123 H 98 09/09/20 12:49 122 H 100 09/09/20 12:44 119 H 100 09/09/20 12:39 118 H 100 09/09/20 12:34 117 H 100 09/09/20 12:29 111 H 100 09/09/20 12:24 108 H 100 09/09/20 12:19 108 H 100 09/09/20 12:14 115 H 100 09/09/20 12:09 116 H 92 09/09/20 12:04 112 H 97 09/09/20 11:59 111 H 96 09/09/20 11:54 111 H 100 09/09/20 11:49 111 H 99 09/09/20 11:44 110 H 100 09/09/20 11:39 111 H 98 09/09/20 11:34 119 H 98 09/09/20 11:29 126 H 99 09/09/20 11:24 108 H 100 09/09/20 11:19 106 H 99 09/09/20 11:17 111 H 92 09/09/20 11:14 106 H 87 09/09/20 11:12 114 H 90 09/09/20 11:09 107 H 99 09/09/20 11:04 107 H 100 09/09/20 10:59 105 H 98 Pulse Ox 09/10/20 08:35 99 09/10/20 08:19 09/10/20 06:29 09/10/20 05:32 09/10/20 04:38 09/10/20 01:56 09/10/20 01:08 09/10/20 00:29 09/09/20 19:56 09/09/20 19:54 99 09/09/20 19:46 09/09/20 16:53 09/09/20 16:40 98 09/09/20 16:12 09/09/20 16:05 09/09/20 15:55 09/09/20 15:50 09/09/20 15:43 09/09/20 15:40 09/09/20 15:35 09/09/20 15:30 09/09/20 15:25 09/09/20 15:20 09/09/20 15:15 09/09/20 13:19 09/09/20 13:14 09/09/20 13:09 09/09/20 13:04 09/09/20 13:00 09/09/20 12:59 09/09/20 12:54 09/09/20 12:49 09/09/20 12:44 09/09/20 12:39 09/09/20 12:34 09/09/20 12:29 09/09/20 12:24 09/09/20 12:19 09/09/20 12:14 09/09/20 12:09 09/09/20 12:04 09/09/20 11:59 09/09/20 11:54 09/09/20 11:49 09/09/20 11:44 09/09/20 11:39 09/09/20 11:34 09/09/20 11:29 09/09/20 11:24 09/09/20 11:19 09/09/20 11:17 09/09/20 11:14 09/09/20 11:12 09/09/20 11:09 09/09/20 11:04 09/09/20 10:59 Intake and Output 09/09/20 09/10/20 09/10/20 23:59 07:59 15:59 Intake Total 1080 360 Output Total 2400 1500 Balance -1320 -1140 Intake: Oral 600 Intake, Free Water 480 360 Output: Urine 2400 1500 Indwelling Catheter 2400 900 Void 600 Other: Total, Intake Amount 360 Total, Output Amount 1600 600 # Voids Void 1 - Exam Cardiovascular: Present: Regular rate Lungs: Present: Clear to auscultation Abdomen: Present: normal appearance, soft, normal bowel sounds. Absent: distention, tenderness, guarding, rigidity Uterus: Present: normal, firm, fundal height below umbilicus. Absent: bogginess, tenderness Extremities: Present: edema (pedal edema bilaterally). Absent: tenderness Incision: Present: dry, dressed
[2020-09-10] MEDS: FERROUS SULFATE 325 MG TAB PO SCH (12:14)
[2020-09-10] MEDS: SIMETHICONE 80 MG CHEW TAB PO PRN ×2 (12:16→17:54)
[2020-09-10 14:24] LABS: Hematocrit 30.6 % (30.3-42.9); Hemoglobin 10.3 gm/dl (10.1-14.3)
[2020-09-11] MEDS: HYDROcodone/ACETAMINOPHEN 5-325 MG TAB PO PRN ×2 (02:16→10:47)
[2020-09-11] MEDS: FERROUS SULFATE 325 MG TAB PO SCH (10:47)
--- NOTE | 2020-09-11 11:25 | Progress Note ---
Assessment and Plan A: S/P Primary LTCS Class 3 obesity Asymptomatic anemia Hx PIH P: D/C home per pt's request Continue Fe Subjective - Subjective Date of service: 09/11/20 Principal diagnosis: /postop day 1 S/P primary LTCS Patient reports: appetite normal, voiding normally, pain well controlled, flatus, bowel movement, ambulating normally [place]: doing well, bottle feeding Objective - Vital Signs Latest vital signs: Vital Signs Temp Pulse Resp BP Pulse Ox Pulse Ox Pulse Ox 09/11/20 10:47 16 09/11/20 07:50 98.2 F 91 H 18 103/46 98 09/11/20 05:55 18 09/11/20 05:05 18 09/11/20 03:16 18 09/11/20 02:16 20 09/11/20 00:07 98.8 F 109 H 18 124/64 100 09/10/20 20:07 100 100 09/10/20 17:10 97.9 F 108 H 18 101/62 99 09/10/20 12:54 97.5 F L 117 H 18 128/70 99 Intake and Output 09/10/20 09/11/20 09/11/20 22:59 06:59 14:59 Intake Total 480 120 Balance 480 120 Intake: Oral 480 120 Other: Total, Intake Amount 480 120 # Voids Void 1 1 1 # Bowel Movements 1 - Exam Breasts: Present: normal Abdomen: Present: normal appearance, soft, normal bowel sounds Vulva: both: normal Uterus: Present: normal, firm, fundal height below umbilicus Extremities: Present: normal Incision: Present: normal, dry, intact
--- NOTE | 2020-09-11 11:48 | Discharge Summary ---
Providers - Providers Date of Admission: 09/06/20 15:08 Date of discharge: 09/11/20 Attending physician: OLIVIA SIU JR, MD Primary care physician: OLIVIA SIU JR, MD Hospitalization Reason for admission: induction of labor Delivery: Procedure: primary low transverse Episiotomy: none Laceration: none Incision: normal, dry, intact Other procedures: none complications: none Discharge diagnosis: IUP at term delivered baby: male Hospital course: Pt was admitted to [facility] for an IOL. She had a primary LTCS w/o pp complications. See H&P, delivery summary, and pp notes. Condition at discharge: Stable Disposition: DC-01 TO HOME OR SELFCARE Plan - Discharge Medications Prescriptions: Ferrous Sulfate [Feosol 325 MG tab] 325 mg PO QDAY #120 tablet Ibuprofen [Motrin Ib] 800 mg PO Q8HR #60 capsule - Provider Discharge Summary Activity: routine, no sex for 6 weeks, no heavy lifting 4 weeks, no strenuous exercise Diet: routine Instructions: routine Additional instructions: [] Smoking cessation referral if applicable(refer to patient education folder for contact #) [] Refer to [facility] Booklet Call your doctor immediately for: * Fever > 100.5 * Heavy vaginal bleeding ( >1 pad per hour) * Severe persistent headache * Shortness of breath * Reddened, hot, painful area to leg or breast * Drainage or odor from incision. * Keep incision clean and dry at all times and follow doctor's instructions regarding bathing/showering - Follow up plan Follow up: OLIVIA SIU JR, MD [Primary Care Provider] - 14 Days
[2020-09-11 16:04] VITALS: BP 118/59
== END 2020-09-11 19:05 | disposition home or self-care (01) | DRG 766 ==
LOC: LD 15:08 → OB 09-09 17:11
PROVIDERS: ADMIT Obstetrics & Gynecology; ATTEND Obstetrics & Gynecology
PROC: 10D00Z1 Extraction of Products of Conception, Low, Open Approach (ICD-10-PCS; principal; 2020-09-09)
PROC: 10H07YZ Insertion of Other Device into Products of Conception, Via Natural or Artificial Opening (ICD-10-PCS; 2020-09-09)
PROC: 3E033VJ Introduction of Other Hormone into Peripheral Vein, Percutaneous Approach (ICD-10-PCS; 2020-09-09)
DX: O62.0 Primary inadequate contractions (principal); O99.214 Obesity complicating childbirth; O99.02 Anemia complicating childbirth; Z37.0 Single live birth; Z20.822 Contact with and (suspected) exposure to COVID-19; D64.9 Anemia, unspecified; O75.0 Maternal distress during labor and delivery; E66.01 Morbid (severe) obesity due to excess calories; O13.4 Gestational [pregnancy-induced] hypertension without significant proteinuria, complicating childbirth; O99.62 Diseases of the digestive system complicating childbirth; K21.9 Gastro-esophageal reflux disease without esophagitis; Z3A.39 39 weeks gestation of pregnancy
CPT/HCPCS: 36415; 59200; 82565; 83615; 84450; 84460; 84550; 85014; 85018; 85027; 85461; 86592; 86706; 86762; 86803; 86850; 86900; 86901; 87806; G0378; J0595; J1170; J2270; J2405; J2590; J2765; J2790; J3490; J7120; U0003